=== PATIENT | female | born 1935 | race Caucasian/White ===

== ENCOUNTER 2018-10-05 20:13 | Emergency (ER) | payer MEDICARE, OTHER ==
--- NOTE | 2018-10-05 20:47 | ERPHSYRPT ---
- History of Present Illness Time Seen by Provider: 10/05/18 20:37 Source: patient Exam Limitations: no limitations Patient Subjective Stated Complaint: pt arrives via EMS from [facility] in [place], EMS states that approx 1900 pt was sitting in her wheelchair, reports when she moved to stand she fell forward landing on her face. pt reports she fell from her wheelchair, denies LOC, denies pain at this time. family reports history of CVA with left sided weakness. 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 large hematoma noted to the right forehead, skin is intact, dried blood noted to the left nare. no other obvious injury or deformity noted. Physician History: 82-year-old white female with history of CVA, left-sided weakness, cataracts, arrhythmia, congestive heart failure, hyperlipidemia, high blood pressure, diabetes Patient brought by medics from [facility], patient apparently fell out of the wheelchair and struck her forehead patient denies loss of consciousness. She denies other complaints at some, patient has a history of chronic ulcer on her left heel. Past medical history includes cataracts, arrhythmia, congestive heart failure, hyperlipidemia, high blood pressure, diabetes type 2, arthritis, unknown psych disorder, kidney stones, CVA with left-sided weakness patient with a chronic left heel ulcer Past surgical history includes CABG, cholecystectomy, kidney stones. Surgery on her left heel Timing/Duration: today Severity: moderate Modifying Factors: Improves With: nothing Associated Symptoms: other (head contusion), No nausea, No vomiting, No abdominal pain, No shortness of breath, No heartburn, No diaphoresis, No cough, No chills, No chest pain, No fever, No headaches, No loss of appetite, No malaise, No rash, No syncope, No seizure, No weakness Allergies/Adverse Reactions: epinephrine Allergy (Mild, Verified 10/05/18 20:35) lidocaine Allergy (Mild, Verified 10/05/18 20:35) Hives Home Medications: Aspirin [[place] Aspirin EC] 81 mg PO DAILY 05/27/16 [History] Atorvastatin Calcium [Lipitor] 10 mg PO DAILY 05/27/16 [History] Carbidopa/Levodopa [Sinemet 25-100 mg Tablet] 1.5 each PO TID 05/27/16 [History] Clonazepam 0.5 mg [Klonopin 0.5 MG] 0.5 mg PO BID 05/27/16 [History] Furosemide 40 mg [Lasix 40 MG] 40 mg PO BID 05/27/16 [History] Hydralazine HCl 10 mg PO TID 05/27/16 [History] Sennosides/Docusate Sodium [Senna Plus Tablet] 1 each PO BID 05/27/16 [History] Acetaminophen 325 mg [Tylenol 325 mg] 650 mg PO Q8HPRN PRN 10/05/18 [ History] Albuterol/Ipratropium 3ml Neb* [DUONEB 0.5-3 MG/3 ml Neb] 3 ml IH Q4H [History] Allopurinol 100 mg [Zyloprim 100 mg] 100 mg PO DAILY 10/05/18 [History] Carvedilol 6.25 mg [Coreg 6.25 MG] 6.25 mg PO BID 10/05/18 [History] Ergocalciferol (Vitamin D2) [Vitamin D2] 50,000 unit PO Q7D 10/05/18 [History] Ferrous Sulfate 325 mg [Feosol 325 mg] 325 mg PO BID 10/05/18 [History] Furosemide 80 mg [Lasix 80 mg] 80 mg PO QAM 10/05/18 [History] Insulin Lispro [Humalog] 7 units SQ TIDWMEALS 10/05/18 [History] Lisinopril 5 mg [Zestril 5 MG] 5 mg PO DAILY 10/05/18 [History] Loratadine 10 mg [Claritin 10 mg] 5 mg PO HS 10/05/18 [History] Lutein 20 mg PO HS 10/05/18 [History] Oseltamivir 75 mg [Tamiflu 75MG Capsule] 75 mg PO DAILY 10/05/18 [History] Oxycodone HCl/Acetaminophen [Percocet 5-325 mg Tablet] 1 each PO Q8H 10/05/18 [ History] Potassium Chloride [Potassium Chloride 20 Meq Powder For Oral Muna] 20 meq PO BID 10/05/18 [History] metOLazone [Metolazone] 5 mg PO 2XW 10/05/18 [History] Hx Tetanus, Diphtheria Vaccination/Date Given: Yes Hx Influenza Vaccination/Date Given: Yes Hx Pneumococcal Vaccination/Date Given: Yes Immunizations Up to Date: Yes - Review of Systems Constitutional: Other (head contusion), No Fever, No Chills Eyes: No Symptoms Ears, Nose, & Throat: No Symptoms Respiratory: No Cough, No Dyspnea Cardiac: No Chest Pain, No Edema, No Syncope Abdominal/Gastrointestinal: No Abdominal Pain, No Nausea, No Vomiting, No Diarrhea Genitourinary Symptoms: No Dysuria Musculoskeletal: Other (chronic left-sided weakness) Skin: Other (Chronic ulcer left heel) Neurological: Focal Weakness (chronic left-sided weakness), Other (chronic left- sided weakness fell out of wheelchair and struck her head), No No Symptoms Psychological: No Symptoms Endocrine: No Symptoms All Other Systems: Reviewed and Negative - Past Medical History Pertinent Past Medical History: Yes Neurological History: No Pertinent History ENT History: Cataracts Cardiac History: Arrhythmia, High Cholesterol, Hypertension Respiratory History: No Pertinent History, CHF, Pneumonia Endocrine Medical History: Diabetes Type II Musculoskeletal History: Arthritis GI Medical History: No Pertinent History History: No Pertinent History Psycho-Social History: Other Female Reproductive Disorders: No Pertinent History Other Medical History: UNKNOWN PSYCH DISORDER. HTN. Hyperlipidemia. CAD. Kidney stones - Past Surgical History Past Surgical History: Yes Neuro Surgical History: No Pertinent History Cardiac: CABG Respiratory: No Pertinent History Gastrointestinal: Cholecystectomy Genitourinary: Kidney Surgery Musculoskeletal: No Pertinent History Female Surgical History: No Pertinent History Other Surgical History: KIDNEY STONES. infection removed from heel 07/2018 - Social History Smoking Status: Never smoker Exposure to second hand smoke: No Drug Use: none Patient Lives Alone: No - Female History Hx Now: No - Nursing Vital Signs Nursing Vital Signs: Initial Vital Signs Temperature 97.5 F 10/05/18 20:18 Pulse Rate 86 10/05/18 20:18 Respiratory Rate 22 10/05/18 20:18 Blood Pressure 121/77 10/05/18 20:18 O2 Sat by Pulse Oximetry 97 10/05/18 20:18 Pain Scale Pain Intensity 0 - Physical Exam General Appearance: mild distress, other (Elderly-appearing white female alert oriented 3 large hematomaoma anterior forehead) Eye Exam: PERRL/EOMI, eyes nml inspection Ears, Nose, Throat Exam: normal ENT inspection, TMs normal, pharynx normal, moist mucous membranes Neck Exam: No normal inspection (neck in c-collar) Respiratory Exam: normal breath sounds, lungs clear, No respiratory distress Cardiovascular Exam: regular rate/rhythm, capillary refill <2 sec Gastrointestinal/Abdomen Exam: soft, normal bowel sounds, No tenderness, No mass Back Exam: normal inspection, normal range of motion, No CVA tenderness, No vertebral tenderness Extremity Exam: other (dressings in place bilateral feet, left hand chronically contracted but able to squeeze) Neurologic Exam: alert, oriented x 3, 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 Large hematoma right forehead) SpO2 Interpretation: normal (97%) SpO2: 97 - Course Nursing assessment & vital signs reviewed: Yes EKG Interpreted by Me: RATE (77 bpm), Sinus Rhythm, Right Bundle Branch Block, Other (EKG: Sinus rhythm, 77 bpm, normal axis, complete right bundle block. No acute ST or T wave changes compared to May 27, 2016) - Radiology Exams Right Hand X-ray Interpretation: Interpreted by me (no fractures no subluxation) Left Hand X-ray Interpretation: Interpreted by me (no fracture no subluxation) - CT Exams Cervical Spine CT Interpretation: Tele-radiologist Report (CT C-spine: Impression no acute CT spine findings) Head CT Interpretation: Tele-radiologist Report (head CT: Impression: 1. Right frontal scalp soft tissue contusion/hematoma. 2. Severe left maxillary sinus disease. 3. No acute intracranial findings) Ordered Tests: Active Orders 24 hr Category Date Time Status Clinical Psychologist Licensed STAT Care 10/05/18 22:24 Active EKG-ER Only STAT Care 10/05/18 22:05 Active IV Insertion STAT Care 10/05/18 20:41 Active CERVICAL SPINE WO CONTRAST [CT] Stat Exams 10/05/18 20:41 Taken HAND (2 VIEW) Stat Exams 10/05/18 Ordered HAND (MINIMUM 3 VIEWS) Stat Exams 10/05/18 22:04 Ordered HEAD WITHOUT CONTRAST [CT] Stat Exams 10/05/18 20:41 Taken CBC W DIFF Stat Lab 10/05/18 21:32 Completed CMP Stat Lab 10/05/18 21:32 Completed Medication Summary Generic Name Dose Route Start Last Admin Trade Name Mono PRN Reason Stop Dose Admin Sodium Chloride 1,000 mls @ 100 mls/hr 10/05/18 22:30 10/05/18 22:25 Sodium Chloride 0.9% 1000 Ml IV 11/04/18 22:29 100 mls/hr .Q10H EDDIE Administration Lab/Rad Data: Laboratory Result Diagrams 10/05/18 21:32 10/05/18 21:32 Laboratory Results 10/05/18 10/05/18 Range/Units 21:32 21:32 WBC 10.4 (4.0-10.5) K/mm3 RBC 3.92 L (4.1-5.4) M/mm3 Hgb 11.9 L (12.0-16.0) gm/dl Hct 38.2 (35-47) % MCV 97.4 (78-100) fl MCH 30.3 (26-32) pg MCHC 31.2 L (32-36) g/dl RDW 15.7 H (11.5-14.0) % Plt Count 180 (150-450) K/mm3 MPV 13.8 H (6-9.5) fl Gran % 84.1 H (36.0-66.0) % Eos # (Auto) 0.05 (0-0.5) Absolute Lymphs (auto) 0.92 L (1.0-4.6) Absolute Monos (auto) 0.66 (0.0-1.3) Lymphocytes % 8.8 L (24.0-44.0) % Monocytes % 6.3 (0.0-12.0) % Eosinophils % 0.5 (0.00-5.0) % Basophils % 0.3 (0.0-0.4) % Absolute Granulocytes 8.77 H (1.4-6.9) Basophils # 0.03 (0-0.4) Sodium 136 L (137-145) mmol/L Potassium 6.0 H (3.5-5.1) mmol/L Chloride 97 L (98-107) mmol/L Carbon Dioxide 24 (22-30) mmol/L Anion Gap 21.3 H (5-15) MEQ/L BUN 208 H (7-17) mg/dL Creatinine 4.08 H (0.52-1.04) mg/dL Estimated GFR 11.1 ML/MIN Glucose 97 (74-106) mg/dL Calcium 9.5 (8.4-10.2) mg/dL Total Bilirubin 0.70 (0.2-1.3) mg/dL AST 16 (14-36) U/L ALT 8 (0-35) U/L Alkaline Phosphatase 106 (38-126) U/L Serum Total Protein 8.5 H (6.3-8.2) g/dL Albumin 4.4 (3.5-5.0) g/dL - Progress Progress: improved Progress Note: 10/05/18 22:46 Patient has some bruising on her dorsal left hand Will go ahead and obtain x- ray. Notified by lab patient with a potassium of 6 BUN of 208 creatinine of 4.08 Will obtain EKG plan to discuss with [facility] for possible transfer. Patient's CT head large hematoma no intercranial abnormality. C-spine CT no acute changes. Impression: 1 accidental fall 2. Head contusion 3. Renal failure 4. Hyperkalemia. 5. Contusion left hand. I contacted [facility] one call and discuss patient's case with Dr. Goldberg. He is asked that we bolused the patient with a liter of normal saline his excepted the patient for transfer. - Departure Departure Disposition: Transfer ([facility]) Clinical Impression: Hyperkalemia Accidental fall Qualifiers: Encounter type: initial encounter Qualified Code(s): W19.XXXA - Unspecified fall, initial encounter Head contusion Qualifiers: Encounter type: initial encounter Contusion of head detail: unspecified part of head Qualified Code(s): S00.93XA - Contusion of unspecified part of head, initial encounter Renal failure Qualifiers: Renal failure chronicity: unspecified chronicity Qualified Code(s): N19 - Unspecified kidney failure Condition: Fair Critical Care Time: No Referrals: JAI WOOD MD [Primary Care Provider] -
[2018-10-05 21:37] LABS: BASOPHIL % 0.3 % (0.0-0.4); Basophil (Absolute #) 0.03 (0-0.4); Eosinophil % 0.5 % (0.00-5.0); Eosinophil (Absolute #) 0.05 (0-0.5); Granulocyte Absolute (ANC) 8.77 (1.4-6.9); Granulocytes % 84.1 % (36.0-66.0); Hematocrit 38.2 % (35-47); Hemoglobin 11.9 gm/dl (12.0-16.0); Lymphocyte (Absolute #) 0.92 (1.0-4.6); Lymphocytes % 8.8 % (24.0-44.0); Mean Cell Volume 97.4 fl (78-100); Mean Corpuscular Hgb Concent. 31.2 g/dl (32-36); Mean Platelet Volume 13.8 fl (6-9.5); Monocyte (Absolute #) 0.66 (0.0-1.3); Monocytes % 6.3 % (0.0-12.0); Platelet Count 180 K/mm3 (150-450); Red Blood Count 3.92 M/mm3 (4.1-5.4); Red Cell Distribution Width 15.7 % (11.5-14.0); White Blood Count 10.4 K/mm3 (4.0-10.5)
[2018-10-05 21:41] LABS: Mean Corpuscular Hemoglobin 30.3 pg (26-32)
[2018-10-05 21:54] LABS: ALBUMIN 4.4 g/dL (3.5-5.0); ANION GAP 21.3 MEQ/L (5-15); BILIRUBIN,TOTAL 0.7 mg/dL (0.2-1.3); Calcium 9.5 mg/dL (8.4-10.2); Creatinine 1 4.08 mg/dL (0.52-1.04); Total Protein 8.5 g/dL (6.3-8.2)
[2018-10-05] MEDS ORDERED: Sodium Chloride 0.9% 1000 ML 1,000 ML ONE (22:18)
[2018-10-05] MEDS ORDERED: Sodium Chloride 0.9% 1000 ML 1,000 ML IV SCH (22:30)
[2018-10-05 23:17] VITALS: BP 154/86; PULSE 88
[2018-10-05 23:22] VITALS: O2SAT 97
--- NOTE | 2018-10-06 08:42 | XRAY ---
Indication: Facial injury following fall. Multiple contiguous axial images obtained through the head without contrast. Comparison: May 27, 2015. New large right frontal scalp hematoma. Stable age-appropriate global atrophy, mild periventricular degenerative micro-ischemia and remote lacunar infarcts in the left thalamus and right sam. Fourth ventricle is midline without hydrocephalus. Bony calvarium intact. There is now complete opacification of the left maxillary sinus. Remaining visualized paranasal sinuses and mastoid air cells are clear. Impression: 1. Nonacute senile brain as detailed. 2. Large right frontal scalp hematoma without underlying fracture. 3. New left maxillary sinus disease. Comment: Preliminary interpretation was made by [facility]. No discrepancy. CT DI 51.85
--- NOTE | 2018-10-06 08:46 | XRAY ---
Indication: Facial injury following fall. Multiple contiguous axial images obtained through the cervical spine. Sagittal and coronal reformatted images obtained. Comparison: None. Age-related osteopenia. Axial images negative for acute fracture, suspicious bony lesions, or spinal canal stenosis. Mild/moderate C4-C6 degenerative endplate spurring. Also mild multilevel degenerative facet hypertrophy, left greater than right. Sagittal and coronal reformatted images demonstrates cervical lordotic straightening, positional versus paraspinal spasm. C5-C6 disc space narrowing. No acute compression fracture, subluxation, or jumped facet. Normal-appearing craniocervical junction. Visualized noncontrasted soft tissues demonstrates scattered carotid calcifications bilaterally and heterogeneous thyroid gland bilaterally. Lung apices clear. Impression: 1. Cervical lordotic straightening, positional versus paraspinal spasm. 2. Negative acute fracture/subluxation. 3. Osteopenia and multilevel degenerative changes. Comment: Preliminary interpretation was made by [facility]. No discrepancy. CT DI 57.97
--- NOTE | 2018-10-06 08:48 | XRAY ---
Indication: Pain following fall. Comparison: April 19, 2013. 3 portable views of the left hand again demonstrates osteopenia and mild/moderate degenerative changes of all IP joints. New distal forearm vascular calcifications. No acute fracture, dislocation, or radiopaque foreign body.
--- NOTE | 2018-10-06 08:49 | XRAY ---
Indication: Pain following fall. Comparison: None 3 views of the right hand demonstrates osteopenia, mild/moderate degenerative changes of all IP joints, tiny well-circumscribed ulnar styloid tip ossification either degenerative versus old injury, and scattered vascular calcifications. No other bony, articular, or soft tissue abnormalities.
== END 2018-10-05 23:38 | disposition short-term general hospital (02) ==
LOC: ED 20:13
DX: E87.5 Hyperkalemia (principal); S00.93XA Contusion of unspecified part of head, initial encounter; S60.222A Contusion of left hand, initial encounter; W19.XXXA Unspecified fall, initial encounter; N19 Unspecified kidney failure; Z86.73 Personal history of transient ischemic attack (TIA), and cerebral infarction without residual deficits; I50.9 Heart failure, unspecified; E78.5 Hyperlipidemia, unspecified; I10 Essential (primary) hypertension; E11.9 Type 2 diabetes mellitus without complications; Z79.4 Long term (current) use of insulin; I25.10 Atherosclerotic heart disease of native coronary artery without angina pectoris; E78.00 Pure hypercholesterolemia, unspecified; M19.90 Unspecified osteoarthritis, unspecified site; Z87.442 Personal history of urinary calculi; Z79.899 Other long term (current) drug therapy
CPT/HCPCS: 36000; 36415; 70450; 72125; 73120; 73130; 80053; 85025; 93005; 93041; 96360; 99285